=== PATIENT | female | born 1935 | race Caucasian/White ===

== ENCOUNTER 2019-04-01 18:50 | Emergency (ER) | payer MEDICARE, BC ==
--- NOTE | 2019-04-01 19:48 | EDM.PDOC ---
ED HPI GENERAL MEDICAL PROBLEM - General Stated Complaint: UNRESPONSIVE Time Seen by Provider: 04/01/19 18:50 Source of Information: Reports: EMS, Family () History Limitations: Reports: Other (Patient cannot provide us with any information.) - History of Present Illness INITIAL COMMENTS - FREE TEXT/NARRATIVE: 84-year-old female who according to the reported that she did not feel well at around lunch time. She was really not any more specific with him than that. She did not specifically complain of chest pain or headache. She just reported that she did not feel well. About mid afternoon, they decided that they were going to go to the [employer] for an outing and apparently around 6 PM the patient was noted by bystanders to fall backward landing on her back and hitting her head on the concrete floor. No one knows if the patient passed out or backwards. She was unresponsive after this occurred to any stimuli according to the [place] personnel did not seem to be breathing. EMS arrived and found that the patient had a pulse but was not breathing. The patient's breathing was assisted and a T-Gel airway was placed by the EMS staff with good bilateral breath sounds apparent. The patient was noted to have a blood pressure in the 80 -90 systolic range and a pulse rate in the 130s. The EMS staff was a basic service and a preparole counseling aide service intercepted with them and assisted in the care of the patient from then out. The patient, again, was noted to have a pulse and a blood pressure in the 100 systolic range and a pulse rate in the 130 range. She was having no spontaneous movements, no assisted respirations and no movements to noxious stimuli. An EKG performed by the EMS staff showed a sinus tachycardia with tall T waves and poor R-wave progression. There was also evidence of LVH. There are no other associated signs or symptoms. There are no other modifying factors. Past Medical History Cardiovascular History: Reports: Hypertension Gastrointestinal History: Reports: Other (See Below) (Colitis) - Past Surgical History GI Surgical History: Reports: Colonoscopy Social & Family History - Tobacco Use Smoking Status *Q: Never Smoker - Living Situation & Occupation Living situation: Reports: Occupation: Retired Social History Comment: Lives with her in their own home. ED ROS GENERAL - Review of Systems Review Of Systems: Unable To Obtain Constitutional: Reports: ROS unobtainable (Secondary to unresponsiveness and critical status.) - Physical Exam Exam: See Below Exam Limited By: No Limitations General Appearance: Obtunded (Unresponsive to any stimuli.), Thin Eye Exam: Right Eye: Abnormal Pupil (Right pupil was 5 mm and the left pupil was 3.5 mm and both were minimally reactive), Bilateral Eye: Abnormal EOM ( Movement) Ears: Normal External Exam Nose: Normal Inspection, Normal Mucosa, No Blood Throat/Mouth: Other (T/Gel in place) Head Exam: Atraumatic (I see no evidence of head trauma.), Normocephalic Neck: Normal Inspection (No crepitus posteriorly) Respiratory/Chest: Lungs Clear, Normal Breath Sounds (Present with good air excursion bilaterally with the resuscitation bag via T-Gel) Cardiovascular: Normal Peripheral Pulses, No JVD, No Murmur, Tachycardia GI/Abdominal: Soft, No Distention, No Mass, Other (Scaphoid abdomen) Neuro Exam (Abbreviated): Unresponsive, Other (No spontaneous movement. No response even to deep painful stimuli) Back Exam: Normal Inspection Extremities: Normal Inspection, No Pedal Edema, Normal Capillary Refill Skin Exam: Warm, Intact Course - Orders/Labs/Meds Orders: Active Orders 24 hr Category Date Time Status EKG Documentation Completion [RC] ASDIRECTED Care 04/01/19 19:02 Active Insert Urinary Catheter [OM.PC] Q24H Care 04/01/19 19:15 Ordered Urinary Catheter Assessment [RC] QSHIFT Care 04/01/19 19:02 Active Cervical Spine wo Cont [CT] Stat Exams 04/01/19 19:00 Taken Chest 1V Frontal [CR] Stat Exams 04/01/19 19:00 Taken Head wo Cont [CT] Stat Exams 04/01/19 19:00 Taken DRUG SCREEN, URINE ALERE [URCHEM] Stat Lab 04/01/19 19:02 Ordered PATIENT RETYPE [BBK] Routine Lab 04/01/19 18:55 Results TYPE AND SCREEN [BBK] Routine Lab 04/01/19 18:55 Results UA W/MICROSCOPIC [URIN] Stat Lab 04/01/19 19:02 Ordered EKG 12 Lead [EK] Routine Ther 04/01/19 19:02 Ordered Labs: Laboratory Tests 04/01/19 04/01/19 04/01/19 Range/Units 18:55 18:55 18:55 WBC 7.3 (4.5-12.0) X10-3/uL RBC 4.27 (3.23-5.20) x10(6)uL Hgb 13.8 (11.5-15.5) g/dL Hct 40.7 (30.0-51.3) % MCV 95.3 (80-96) fL MCH 32.2 (27.7-33.6) pg MCHC 33.8 (32.2-35.4) g/dL RDW 12.2 (11.5-15.5) % Plt Count 256 (125-369) X10(3)uL MPV 8.3 (7.4-10.4) fL Neut % (Auto) 47.0 (46-82) % Lymph % (Auto) 45.1 H (13-37) % [place] % (Auto) 5.9 (4-12) % Eos % (Auto) 1 (1.0-5.0) % Baso % (Auto) 1 (0-2) % Neut # (Auto) 3.4 (1.6-8.3) # Lymph # (Auto) 3.3 (0.6-5.0) # [place] # (Auto) 0.4 (0.0-1.3) # Eos # (Auto) 0.1 (0.0-0.8) # Baso # (Auto) 0.1 (0.0-0.2) # PT (8.7-11.1) INR (0.89-1.13) APTT (24.4-33.2) SECONDS POC VBG pH (7.31-7.41) POC VBG pCO2 (41-51) mmHG POC VBG HCO3 (23-28) mmol/L POC VBG Total CO2 (24-29) mmol/L POC VBG Base Excess (-2-3) mmol/L Sodium 138 (135-145) mmol/L Potassium 3.9 (3.5-5.3) mmol/L Chloride 105 (100-110) mmol/L Carbon Dioxide 16 L (21-32) mmol/L BUN 25 H (7-18) mg/dL Creatinine 0.9 (0.55-1.02) mg/dL Est Cr Clr Drug Dosing TNP Estimated GFR (MDRD) 60 (>60) BUN/Creatinine Ratio 27.8 H (9-20) Glucose 251 H (80-116) mg/dL Calcium 9.1 (8.6-10.2) mg/dL Magnesium 2.1 (1.8-2.5) mg/dL Total Bilirubin 0.2 (0.1-1.3) mg/dL AST 47 H (5-25) IU/L ALT 36 (12-36) U/L Alkaline Phosphatase 93 (56-112) IU/L Troponin I 0.132 H* (<0.017-0.056) ng/mL Total Protein 6.7 (6.0-8.0) g/dL Albumin 3.5 (3.2-4.6) g/dL Globulin 3.2 g/dL Albumin/Globulin Ratio 1.1 Amylase 124 H (25-115) U/L Ethyl Alcohol < 0.03 (<0.03) % Blood Type Gel Antibody Screen 04/01/19 04/01/19 04/01/19 Range/Units 18:55 18:55 18:55 WBC (4.5-12.0) X10-3/uL RBC (3.23-5.20) x10(6)uL Hgb (11.5-15.5) g/dL Hct (30.0-51.3) % MCV (80-96) fL MCH (27.7-33.6) pg MCHC (32.2-35.4) g/dL RDW (11.5-15.5) % Plt Count (125-369) X10(3)uL MPV (7.4-10.4) fL Neut % (Auto) (46-82) % Lymph % (Auto) (13-37) % [place] % (Auto) (4-12) % Eos % (Auto) (1.0-5.0) % Baso % (Auto) (0-2) % Neut # (Auto) (1.6-8.3) # Lymph # (Auto) (0.6-5.0) # [place] # (Auto) (0.0-1.3) # Eos # (Auto) (0.0-0.8) # Baso # (Auto) (0.0-0.2) # PT 8.8 (8.7-11.1) INR 0.91 (0.89-1.13) APTT 21.7 L (24.4-33.2) SECONDS POC VBG pH 7.33 (7.31-7.41) POC VBG pCO2 33.8 L (41-51) mmHG POC VBG HCO3 17.6 L (23-28) mmol/L POC VBG Total CO2 19 L (24-29) mmol/L POC VBG Base Excess -8 L (-2-3) mmol/L Sodium (135-145) mmol/L Potassium (3.5-5.3) mmol/L Chloride (100-110) mmol/L Carbon Dioxide (21-32) mmol/L BUN (7-18) mg/dL Creatinine (0.55-1.02) mg/dL Est Cr Clr Drug Dosing Estimated GFR (MDRD) (>60) BUN/Creatinine Ratio (9-20) Glucose (80-116) mg/dL Calcium (8.6-10.2) mg/dL Magnesium (1.8-2.5) mg/dL Total Bilirubin (0.1-1.3) mg/dL AST (5-25) IU/L ALT (12-36) U/L Alkaline Phosphatase (56-112) IU/L Troponin I (<0.017-0.056) ng/mL Total Protein (6.0-8.0) g/dL Albumin (3.2-4.6) g/dL Globulin g/dL Albumin/Globulin Ratio Amylase (25-115) U/L Ethyl Alcohol (<0.03) % Blood Type O POSITIVE Gel Antibody Screen Negative - Radiology Interpretation Free Text/Narrative:: Portable chest x-ray shows no acute abnormality. CT scan of head showed blood in the third ventricle and both lateral ventricles with a defect in the third ventrally could be an aneurysm or a mass. There was also diffuse subarachnoid hemorrhage and hydrocephalus. This was per Dr. Ruma Draper. CT scan of cervical spine showed degenerative changes but no acute per Dr. Ruma Draper. - Re-Assessments/Exams Free Text/Narrative Re-Assessment/Exam: 04/01/19 19:25: The patient has intracranial hemorrhage on CT scan consistent with most probable bleeding from aneurysm. She is intubated with a T/Gel airway which is working well and besides some spontaneous respirations she has no other neurologic response despite no sedatives being given. I had previously discussed the serious and grave nature of the patient's condition with the and I rediscussed it with him when the CT findings came back. With his consent, I called and discussed patient's case with Dr. Camarena, emergency department physician at [facility] in [place], and he has agreed to accept the patient in transfer. The patient will be sent via ground ALS ambulance service as this will be the most expeditious way to transport the patient to [facility] in [place]. 04/01/19 19:45: labs reviewed after the patient left showed nothing essentially normal except for troponin of 0.132. Departure - Departure Time of Disposition: 19:35 Disposition: DC/Tfer to Acute Hospital 02 Condition: Critical Clinical Impression: Intracranial hemorrhage, Respiratory arrest Respiratory failure Qualifiers: Chronicity: acute Respiratory failure complication: unspecified whether with hypoxia or hypercapnia Qualified Code(s): J96.00 - Acute respiratory failure, unspecified whether with hypoxia or hypercapnia - Discharge Information Referrals: PCP,None [Primary Care Provider] - Forms: ED Department Discharge - My Orders Last 24 Hours: My Active Orders 04/01/19 18:55 PATIENT RETYPE [BBK] Routine TYPE AND SCREEN [BBK] Routine 04/01/19 19:00 Cervical Spine wo Cont [CT] Stat Chest 1V Frontal [CR] Stat Head wo Cont [CT] Stat 04/01/19 19:02 EKG Documentation Completion [RC] ASDIRECTED Urinary Catheter Assessment [RC] QSHIFT DRUG SCREEN, URINE ALERE [URCHEM] Stat UA W/MICROSCOPIC [URIN] Stat EKG 12 Lead [EK] Routine 04/01/19 19:15 Insert Urinary Catheter [OM.PC] Q24H - Assessment/Plan Last 24 Hours: My Active Orders 04/01/19 18:55 PATIENT RETYPE [BBK] Routine TYPE AND SCREEN [BBK] Routine 04/01/19 19:00 Cervical Spine wo Cont [CT] Stat Chest 1V Frontal [CR] Stat Head wo Cont [CT] Stat 04/01/19 19:02 EKG Documentation Completion [RC] ASDIRECTED Urinary Catheter Assessment [RC] QSHIFT DRUG SCREEN, URINE ALERE [URCHEM] Stat UA W/MICROSCOPIC [URIN] Stat EKG 12 Lead [EK] Routine 04/01/19 19:15 Insert Urinary Catheter [OM.PC] Q24H
== END 2019-04-01 19:35 ==
LOC: EDBD → FB.ED 18:50
DX: S06.6X9A Traumatic subarachnoid hemorrhage with loss of consciousness of unspecified duration, initial encounter (principal); J96.00 Acute respiratory failure, unspecified whether with hypoxia or hypercapnia; I10 Essential (primary) hypertension; W01.0XXA Fall on same level from slipping, tripping and stumbling without subsequent striking against object, initial encounter
CPT/HCPCS: 36415; 51702; 70450; 71045; 72125; 80053; 82150; 82803; 83735; 84484; 85025; 85610; 85730; 86850; 86900; 86901; 99285; G0480